=== PATIENT | male | born 1980 ===

== ENCOUNTER 2018-07-05 18:55 | Emergency (ER) | payer SELFPAY ==
[2018-07-05 19:01] VITALS: BP 123/81
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
== END 2018-07-05 19:08 ==
DX: R56.9 Unspecified convulsions (principal)